=== PATIENT | male | born 2000 | race Hispanic/Latino ===

== ENCOUNTER 2022-06-25 12:18 | Emergency (ER) | payer SELFPAY ==
[2022-06-25] MEDS ORDERED: Boostrix 0.5 ML (Tdap) VIAL (>/=7 yrs of age) ONE (13:38)
== END 2022-06-25 13:51 | disposition short-term general hospital (02) ==
LOC: BURERS 12:18
DX: S61.317A Laceration without foreign body of left little finger with damage to nail, initial encounter (principal); W20.8XXA Other cause of strike by thrown, projected or falling object, initial encounter; Z23 Encounter for immunization
CPT/HCPCS: 90471; 90715